=== PATIENT | female | born 1990 | race African-American/Black ===

== ENCOUNTER 2017-11-29 07:50 | Emergency (ER) | payer OTHER | END 2017-11-29 08:25 | disposition home or self-care (01) | LOC: ER 08:25 | DX: O26.891 Other specified pregnancy related conditions, first trimester (principal); H65.191 Other acute nonsuppurative otitis media, right ear; O16.1 Unspecified maternal hypertension, first trimester; Z3A.01 Less than 8 weeks gestation of pregnancy; Z88.0 Allergy status to penicillin; Z88.1 Allergy status to other antibiotic agents; Z88.2 Allergy status to sulfonamides | CPT/HCPCS: 99283 ==

== ENCOUNTER 2019-05-11 13:48 | Emergency (ER) | payer MEDICAID, OTHER ==
[~2019-05-11] VITALS: Ht 170.2 cm; Wt 73.6 kg
[~2019-05-11 13:48] MED LIST: AZIT250T6 PO; CIPR500T94 PO; METR500T PO; PREN1TAB58 PO
--- NOTE | 2019-05-11 14:10 | PHYS DOC ---
Past Medical History Past Medical History: Hypertension Past Surgical History: No Surgical History Alcohol Use: Occasionally Drug Use: None Adult General Chief Complaint Chief Complaint: FLANK PAIN HPI HPI Patient is a 28 year old female that presents with right flank pain that started this morning accompanied by dysuria. The patient states that she's also been having nausea, and dizziness. The patient states her last miscarriage was 2 weeks ago. Rates her pain a 7 out of 10 in severity and sharp and constant. She states she has no history kidney stones. Review of Systems Review of Systems Constitutional: Denies fever or chills. Report dizziness. Eyes: Denies change in visual acuity, redness, or eye pain [] HENT: Denies nasal congestion or sore throat [] Respiratory: Denies cough or shortness of breath [] Cardiovascular: No additional information not addressed in HPI [] GI: Reports abdominal pain, nausea, Denies vomiting, bloody stools or diarrhea [] : Reports dysuria denies hematuria [] Musculoskeletal: Denies back pain or joint pain [] Integument: Denies rash or skin lesions [] Neurologic: Denies headache, focal weakness or sensory changes [] Endocrine: Denies polyuria or polydipsia [] Complete systems were reviewed and found to be within normal limits, except as documented in this note. Current Medications Current Medications Current Medications Medications (Trade) Dose Ordered Sig/Willow Start Time Stop Time Status Last Admin Dose Admin Ceftriaxone Sodium (Rocephin) 1 gm 1X ONCE 05/11/19 15:00 05/11/19 15:01 Morphine Sulfate (Morphine Sulfate) 2 mg 1X ONCE 05/11/19 14:30 05/11/19 14:31 DC 05/11/19 14:25 2 MG Ondansetron HCl (Zofran) 4 mg 1X ONCE 05/11/19 14:30 05/11/19 14:31 DC 05/11/19 14:25 4 MG Sodium Chloride 1,000 ml @ 1,000 mls/hr 1X ONCE 05/11/19 14:30 05/11/19 15:29 05/11/19 14:25 1,000 MLS/HR Allergies Allergies Allergies Coded Allergies Type Severity Reaction Last Updated Verified Penicillins Allergy Intermediate rash, vomiting 02/17/14 Yes clindamycin Allergy Intermediate Rash 12/18/15 Yes sulfamethoxazole Allergy Intermediate Rash 12/18/15 Yes trimethoprim Allergy Intermediate Rash 12/18/15 Yes Physical Exam Physical Exam Constitutional: Well developed, well nourished, no acute distress, non-toxic appearance. [] HENT: Normocephalic, atraumatic, bilateral external ears normal, oropharynx moist, no oral exudates, nose normal. [] Eyes: PERRLA, EOMI, conjunctiva normal, no discharge. [] Neck: Normal range of motion, no tenderness, supple, no stridor. [] Cardiovascular:Heart rate regular rhythm, no murmur [] Lungs & Thorax: Bilateral breath sounds clear to auscultation [] Abdomen: Bowel sounds normal, soft, R flank tenderness, no masses, no pulsatile masses. [] Skin: Warm, dry, no erythema, no rash. [] Back: mild R CVA tenderness. [] Extremities: No tenderness, no cyanosis, no clubbing, ROM intact, no edema. [] Neurologic: Alert and oriented X 3, normal motor function, normal sensory function, no focal deficits noted. [] Psychologic: Affect normal, judgement normal, mood normal. [] Current Patient Data Vital Signs Vital Signs Date Time Temp Pulse Resp B/P (MAP) Pulse Ox O2 Delivery O2 Flow Rate FiO2 05/11/19 14:25 20 95 Room Air 05/11/19 13:50 98.5 103 177/95 (122) 98.5 Lab Values Laboratory Tests Test 05/11/19 14:02 05/11/19 14:05 POC Urine HCG, Qualitative Hcg negative (Negative) White Blood Count 15.1 x10^3/uL (4.0-11.0) H Red Blood Count 3.98 x10^6/uL (3.50-5.40) Hemoglobin 11.7 g/dL (12.0-15.5) L Hematocrit 34.0 % (36.0-47.0) L Mean Corpuscular Volume 86 fL (79-100) Mean Corpuscular Hemoglobin 29 pg (25-35) Mean Corpuscular Hemoglobin Concent 34 g/dL (31-37) Red Cell Distribution Width 14.2 % (11.5-14.5) Platelet Count 210 x10^3/uL (140-400) Neutrophils (%) (Auto) 74 % (31-73) H Lymphocytes (%) (Auto) 12 % (24-48) L Monocytes (%) (Auto) 13 % (0-9) H Eosinophils (%) (Auto) 1 % (0-3) Basophils (%) (Auto) 1 % (0-3) Neutrophils # (Auto) 11.2 x10^3/uL (1.8-7.7) H Lymphocytes # (Auto) 1.8 x10^3/uL (1.0-4.8) Monocytes # (Auto) 1.9 x10^3/uL (0.0-1.1) H Eosinophils # (Auto) 0.1 x10^3/uL (0.0-0.7) Basophils # (Auto) 0.1 x10^3/uL (0.0-0.2) Urine Color Yellow Urine Clarity Cloudy Urine pH 6.0 Urine Specific [place] 1.015 Urine Protein 30 mg/dL (NEG-TRACE) Urine Glucose (UA) Negative mg/dL (NEG) Urine Ketones (Stick) Negative mg/dL (NEG) Urine Blood Large (NEG) Urine Nitrite Negative (NEG) Urine Bilirubin Negative (NEG) Urine Urobilinogen Dipstick 0.2 mg/dL (0.2 mg/dL) Urine Leukocyte Esterase Large (NEG) Urine RBC 11-20 /HPF (0-2) Urine WBC Tntc /HPF (0-4) Urine Squamous Epithelial Cells Occ /LPF Urine Bacteria Moderate /HPF (0-FEW) Sodium Level 136 mmol/L (136-145) Potassium Level 3.6 mmol/L (3.5-5.1) Chloride Level 102 mmol/L (98-107) Carbon Dioxide Level 24 mmol/L (21-32) Anion Gap 10 (6-14) Blood Urea Nitrogen 11 mg/dL (7-20) Creatinine 0.9 mg/dL (0.6-1.0) Estimated GFR (Cockcroft-Gault) 89.0 BUN/Creatinine Ratio 12 (6-20) Glucose Level 92 mg/dL (70-99) Calcium Level 9.2 mg/dL (8.5-10.1) Total Bilirubin 0.5 mg/dL (0.2-1.0) Aspartate Amino Transferase (AST) 12 U/L (15-37) L Alanine Aminotransferase (ALT) 15 U/L (14-59) Alkaline Phosphatase 81 U/L (46-116) Total Protein 8.1 g/dL (6.4-8.2) Albumin 3.3 g/dL (3.4-5.0) L Albumin/Globulin Ratio 0.7 (1.0-1.7) L Laboratory Tests 05/11/19 14:05 Laboratory Tests 05/11/19 14:05 EKG EKG [] Radiology/Procedures Radiology/Procedures [][facility] [address] [place] [address] IMAGING REPORT Signed PATIENT: AVERY TAYLOR ACCOUNT: [id number] : 1990 LOCATION: ER AGE: 28 SEX: F EXAM STATUS: REG ER ORD. PHYSICIAN: SARTHAK JOHNSON APRN REASON: Right flank pain started today. PROCEDURE: CT ABDOMEN PELVIS WO CONTRAST PQRS Compliance statement: One or more of the following individualized dose reduction techniques were utilized for this examination: 1. Automated exposure control. 2. Adjustment of the mA and/or kV according to patient size. 3. Use of iterative reconstruction technique. Indication:Right flank pain. TECHNIQUE: CT abdomen and pelvis without IV contrast with multiplanar reformats. COMPARISON: 01/31/2012. FINDINGS: Limited evaluation of solid abdominal and pelvic organs due to lack of IV contrast. Heart is normal in size. No pericardial or pleural effusion. Clear lung bases. Noncontrast appearance of the liver, spleen, gallbladder, pancreas, adrenals within normal limits. No nephrolithiasis or hydronephrosis. No enlarged retroperitoneal or pelvic adenopathy. No free pelvic fluid or ascites. No bowel obstruction. Normal appendix. Retroverted uterus with IUD. No pneumoperitoneum. Urinary bladder demonstrates circumferential wall thickening without radiopaque stone. No suspicious bony lesion. IMPRESSION: Limited evaluation of solid abdominal and pelvic organs due to lack of IV contrast. 1. No nephrolithiasis or hydronephrosis. 2. Normal appendix. 3. Mild circumferential urinary bladder wall thickening may be secondary to suboptimal distention or cystitis. Clinically correlate with urinalysis. Electronically signed by: Michele Hawkins DO (05/11/2019 2:47 PM) [facility] DICTATED and SIGNED BY: MICHELE HAWKINS DO DATE: 05/11/19 1447 Course & Med Decision Making Course & Med Decision Making Pertinent Labs and Imaging studies reviewed. (See chart for details) Will get CT, labs, Urine, and give supportive care. CT is negative for kidney stones, Urine shows UTI, labs show a mildy elevated WBC. Will give rocephin and then d/c home with Keflex. Dragon Disclaimer Dragon Disclaimer This electronic medical record was generated, in whole or in part, using a voice recognition dictation system. Departure Departure Impression: Primary Impression: Urinary tract infection Disposition: HOME, SELF-CARE Condition: STABLE Referrals: NO PCP (PCP) Patient Instructions: Urinary Tract Infection Additional Instructions: Thank you for visiting [facility] We appreciate you trusting us with your care. If any additional problems come up don't hesitate to return to visit us. Please follow up with your primary care provider so they can plan additional care if needed and know about the problem that you had. If symptoms worsen come back to the Emergency Department. Any concerning symptoms that start such as chest pain, shortness of air, weakness or numbness on one side of the body, running high fevers or any other concerning symptoms return to the ER. Please fill your medications at any pharmacy and follow the prescription instructions. You have been prescribed an antibiotic today to help fight your infection. Please take all of the antibiotic as directed. If after 48 hours the infection is not improving, please return for more care. If the infection worsens, return to ER for additional care. Scripts Cephalexin (KEFLEX) 500 Mg Capsule 1 CAP PO BID for 7 Days, #14 CAP Prov: SARTHAK JOHNSON APRN 05/11/19 Problem Qualifiers Primary Impression: Urinary tract infection Urinary tract infection type: acute cystitis Hematuria presence: with hematuria Qualified Codes: N30.01 - Acute cystitis with hematuria SARTHAK JOHNSON APRN May 11, 2019 14:10
[2019-05-11 14:15] LABS: BASO # 0.1 x10^3/uL (0.0-0.2); BASO % 1 % (0-3); EOS # 0.1 x10^3/uL (0.0-0.7); EOS % 1 % (0-3); HEMOGLOBIN 11.7 g/dL (12.0-15.5); LYMPH # 1.8 x10^3/uL (1.0-4.8); LYMPH % 12 % (24-48); MEAN CORPUSCULAR HEMOGLOBIN 29 pg (25-35); MEAN CORPUSCULAR HGB CONC 34 g/dL (31-37); MEAN CORPUSCULAR VOLUME 86 fL (79-100); MONO # 1.9 x10^3/uL (0.0-1.1); MONO % 13 % (0-9); NEUT # 11.2 x10^3/uL (1.8-7.7); NEUT % 74 % (31-73); PLATELET COUNT 210 x10^3/uL (140-400); RED BLOOD COUNT 3.98 x10^6/uL (3.50-5.40); RED CELL DISTRIBUTION WIDTH 14.2 % (11.5-14.5); WHITE BLOOD COUNT 15.1 x10^3/uL (4.0-11.0)
[2019-05-11 14:18] LABS: BILIRUBIN,URINE NEGATIVE (NEG); CLARITY,URINE CLOUDY; COLOR,URINE YELLOW; NITRITE,URINE NEGATIVE (NEG); PROTEIN,URINE 30 mg/dL (NEG-TRACE); UROBILINOGEN,URINE 0.2 mg/dL (0.2 mg/dL)
[2019-05-11 14:29] LABS: CALCIUM 9.2 mg/dL (8.5-10.1); CREATININE 0.9 mg/dL (0.6-1.0); POTASSIUM 3.6 mmol/L (3.5-5.1)
[2019-05-11] MEDS ORDERED: IV NORMAL SALINE 1000ML BAG 1,000 ML IV ONE (14:30)
[2019-05-11] MEDS ORDERED: MORPHINE SULFATE 2 MG/ML VIAL. IV ONE ×2 (14:30→15:30)
[2019-05-11] MEDS ORDERED: ONDANSETRON PF 4 MG/2 ML VIAL. IV ONE (14:30)
[2019-05-11 14:33] LABS: BACTERIA,URINE MODERATE /HPF (0-FEW); SQUAMOUS EPITHELIAL CELL,UR OCC /LPF; WBC,URINE TNTC /HPF (0-4)
[2019-05-11 14:35] LABS: ALBUMIN 3.3 g/dL (3.4-5.0); ALBUMIN/GLOBULIN RATIO 0.7 (1.0-1.7); TOTAL BILIRUBIN 0.5 mg/dL (0.2-1.0); TOTAL PROTEIN 8.1 g/dL (6.4-8.2)
--- NOTE | 2019-05-11 14:51 | RAD ---
PQRS Compliance statement: One or more of the following individualized dose reduction techniques were utilized for this examination: 1. Automated exposure control. 2. Adjustment of the mA and/or kV according to patient size. 3. Use of iterative reconstruction technique. Indication:Right flank pain. TECHNIQUE: CT abdomen and pelvis without IV contrast with multiplanar reformats. COMPARISON: 01/31/2012. FINDINGS: Limited evaluation of solid abdominal and pelvic organs due to lack of IV contrast. Heart is normal in size. No pericardial or pleural effusion. Clear lung bases. Noncontrast appearance of the liver, spleen, gallbladder, pancreas, adrenals within normal limits. No nephrolithiasis or hydronephrosis. No enlarged retroperitoneal or pelvic adenopathy. No free pelvic fluid or ascites. No bowel obstruction. Normal appendix. Retroverted uterus with IUD. No pneumoperitoneum. Urinary bladder demonstrates circumferential wall thickening without radiopaque stone. No suspicious bony lesion. IMPRESSION: Limited evaluation of solid abdominal and pelvic organs due to lack of IV contrast. 1. No nephrolithiasis or hydronephrosis. 2. Normal appendix. 3. Mild circumferential urinary bladder wall thickening may be secondary to suboptimal distention or cystitis. Clinically correlate with urinalysis. Electronically signed by: Michele Howard DO (05/11/2019 2:47 PM) [facility]
[2019-05-11] MEDS ORDERED: CEPH-264 PO (14:59)
[2019-05-11] MEDS ORDERED: cefTRIAXone IV Push 1 GM VIAL. IVP ONE (15:00)
[2019-05-11] MEDS ORDERED: KETOROLAC 15 MG/ML VIAL. IV ONE (15:30)
[2019-05-11 15:31] VITALS: BP 157/81
== END 2019-05-11 15:32 | disposition home or self-care (01) ==
LOC: ER 13:48
DX: N30.01 Acute cystitis with hematuria (principal); I10 Essential (primary) hypertension; R42 Dizziness and giddiness; Z88.0 Allergy status to penicillin; Z88.1 Allergy status to other antibiotic agents; Z88.2 Allergy status to sulfonamides
CPT/HCPCS: 36415; 74176; 80053; 81001; 81025; 85025; 87086; 87186; 96361; 96374; 96375; 99285; J2270; J2405; J7030

== ENCOUNTER 2019-12-24 12:45 | Emergency (ER) | payer MEDICAID ==
[~2019-12-24] VITALS: Ht 162.6 cm; Wt 70.9 kg
[~2019-12-24 12:45] MED LIST changes: +CEPH-264 PO
[2019-12-24 13:20] VITALS: BP 182/101
[2019-12-24 13:46] LABS: BILIRUBIN,URINE NEGATIVE (NEG); CLARITY,URINE CLEAR; COLOR,URINE YELLOW; NITRITE,URINE NEGATIVE (NEG); PROTEIN,URINE 30 mg/dL (NEG-TRACE); UROBILINOGEN,URINE 0.2 mg/dL (0.2 mg/dL)
[2019-12-24 13:50] LABS: BARBITURATES NEG (NEG); BENZODIAZEPINES NEG (NEG); CANNABINOIDS POS (NEG); COCAINE POS (NEG); METHADONE NEG (NEG); OPIATES NEG (NEG); PHENCYCLIDINE NEG (NEG)
[2019-12-24 13:51] LABS: AMPHETAMINE/METHAMPHETAMINE NEG (NEG)
[2019-12-24 13:54] LABS: BACTERIA,URINE FEW /HPF (0-FEW); RBC,URINE TNTC /HPF (0-2); SQUAMOUS EPITHELIAL CELL,UR FEW /LPF; TRICHOMONAS,URINE PRESENT; WBC,URINE 20-40 /HPF (0-4)
[2019-12-24 14:08] LABS: BASO # 0.1 x10^3/uL (0.0-0.2); BASO % 1 % (0-3); EOS # 0.5 x10^3/uL (0.0-0.7); EOS % 4 % (0-3); HEMATOCRIT 34.2 % (36.0-47.0); HEMOGLOBIN 11.5 g/dL (12.0-15.5); LYMPH % 17 % (24-48); MEAN CORPUSCULAR HEMOGLOBIN 29 pg (25-35); MEAN CORPUSCULAR HGB CONC 34 g/dL (31-37); MEAN CORPUSCULAR VOLUME 86 fL (79-100); MONO # 0.9 x10^3/uL (0.0-1.1); MONO % 7 % (0-9); NEUT # 8.3 x10^3/uL (1.8-7.7); NEUT % 71 % (31-73); PLATELET COUNT 209 x10^3/uL (140-400); RED BLOOD COUNT 3.98 x10^6/uL (3.50-5.40); RED CELL DISTRIBUTION WIDTH 14.7 % (11.5-14.5); WHITE BLOOD COUNT 11.8 x10^3/uL (4.0-11.0)
--- NOTE | 2019-12-24 14:10 | RAD ---
PELVIS W/TV History: Vaginal bleeding. Comparison: CT May 11, 2019. Technique: Grayscale and color Doppler imaging of the pelvis was performed using transabdominal and transvaginal technique. Findings: The uterus measures 7.1 x 5.4 x 4.4 cm in length. IUD noted within the upper endometrial canal. Right ovary measures 1.7 x 2.1 x 1.0 cm. Left ovary measures 3.2 x 2.7 x 2.3 cm. Involuting hemorrhagic follicle measures 2.0 cm. Small pelvic free fluid, likely physiologic. No adnexal masses are seen. IMPRESSION: 1. IUD noted within the upper endometrial canal. 2. Involuting left ovarian hemorrhagic follicle. Electronically signed by: Rhys Cotton DO (12/24/2019 2:07 PM) [id number]
[2019-12-24 14:29] LABS: CALCIUM 9.1 mg/dL (8.5-10.1); CREATININE 0.8 mg/dL (0.6-1.0); GFR 101.2; POTASSIUM 3.2 mmol/L (3.5-5.1)
[2019-12-24 14:32] LABS: ALBUMIN 3.3 g/dL (3.4-5.0); ALBUMIN/GLOBULIN RATIO 0.7 (1.0-1.7); TOTAL BILIRUBIN 0.6 mg/dL (0.2-1.0); TOTAL PROTEIN 7.8 g/dL (6.4-8.2)
[2019-12-24] MEDS ORDERED: NITR100C62 PO (14:44)
--- NOTE | 2019-12-24 14:44 | PHYS DOC ---
Past Medical History Past Medical History: Hypertension Past Surgical History: No Surgical History Smoking Status: Current Every Day Smoker Alcohol Use: Occasionally Drug Use: None Adult General Chief Complaint Chief Complaint: VAGINAL BLEEDING HPI HPI Patient is a 29 year old female with history of hypertension who presents to the ED today complaining of vaginal bleeding that began 3 weeks ago but got worse when she woke up this morning. Patient states she woke up and thought she had a low blood on her bed. Denies any abdominal pain or cramping. She states she has had ParaGard IUD since 2018. Review of Systems Review of Systems Constitutional: Denies fever or chills [] Eyes: Denies change in visual acuity, redness, or eye pain [] HENT: Denies nasal congestion or sore throat [] Respiratory: Denies cough or shortness of breath [] Cardiovascular: No additional information not addressed in HPI [] GI: Reports vaginal bleeding. Denies abdominal pain, nausea, vomiting, bloody stools or diarrhea [] : Denies dysuria or hematuria [] Musculoskeletal: Denies back pain or joint pain [] Integument: Denies rash or skin lesions [] Neurologic: Denies headache, focal weakness or sensory changes [] All other systems were reviewed and found to be within normal limits, except as documented in this note. Current Medications Current Medications Current Medications Medications (Trade) Dose Ordered Sig/Willow Start Time Stop Time Status Last Admin Dose Admin Azithromycin (Zithromax) 1,000 mg 1X ONCE 12/24/19 14:30 12/24/19 14:31 UNV Ceftriaxone Sodium (Rocephin Im) 250 mg 1X ONCE 12/24/19 14:30 12/24/19 14:31 UNV Diphenhydramine HCl (Benadryl) 25 mg 1X ONCE 12/24/19 14:30 12/24/19 14:31 UNV Metronidazole (Flagyl) 2,000 mg 1X ONCE 12/24/19 14:30 12/24/19 14:31 UNV Ondansetron HCl (Zofran Odt) 4 mg 1X ONCE 12/24/19 14:30 12/24/19 14:31 UNV Prednisone (Prednisone) 50 mg 1X ONCE 12/24/19 14:30 12/24/19 14:31 UNV Allergies Allergies Allergies Coded Allergies Type Severity Reaction Last Updated Verified Penicillins Allergy Intermediate rash, vomiting 02/17/14 Yes clindamycin Allergy Intermediate Rash 12/18/15 Yes sulfamethoxazole Allergy Intermediate Rash 12/18/15 Yes trimethoprim Allergy Intermediate Rash 12/18/15 Yes Physical Exam Physical Exam Constitutional: Well developed, well nourished, no acute distress, non-toxic appearance. [] HENT: Normocephalic, atraumatic, bilateral external ears normal, oropharynx moist, no oral exudates, nose normal. [] Eyes: PERRLA, EOMI, conjunctiva normal, no discharge. [] Neck: Normal range of motion, no tenderness, supple, no stridor. [] Cardiovascular:Heart rate regular rhythm, no murmur [] Lungs & Thorax: Bilateral breath sounds clear to auscultation [] Abdomen: Bowel sounds normal, soft, no tenderness, no masses, no pulsatile masses. [] Pelvic exam External pelvic appears normal, cervix is visualized with IUD strings in the cervical OS,, no CMT, no adnexal tenderness, trace amount of bright red blood in the vaginal vault. Skin: Warm, dry, no erythema, no rash. [] Back: No tenderness, no CVA tenderness. [] Extremities: No tenderness, no cyanosis, no clubbing, ROM intact, no edema. [] Neurologic: Alert and oriented X 3, normal motor function, normal sensory function, no focal deficits noted. [] Psychologic: Affect normal, judgement normal, mood normal. [] Current Patient Data Vital Signs Vital Signs Date Time Temp Pulse Resp B/P (MAP) Pulse Ox O2 Delivery O2 Flow Rate FiO2 12/24/19 13:20 98.2 77 18 182/101 (128) 97 Room Air 98.2 Lab Values Laboratory Tests Test 12/24/19 12:58 12/24/19 13:05 12/24/19 14:00 Urine Collection Type Unknown Urine Color Yellow Urine Clarity Clear Urine pH 6.0 (<5.0-8.0) Urine Specific [place] 1.015 (1.000-1.030) Urine Protein 30 mg/dL (NEG-TRACE) Urine Glucose (UA) Negative mg/dL (NEG) Urine Ketones (Stick) Negative mg/dL (NEG) Urine Blood Large (NEG) Urine Nitrite Negative (NEG) Urine Bilirubin Negative (NEG) Urine Urobilinogen Dipstick 0.2 mg/dL (0.2 mg/dL) Urine Leukocyte Esterase Moderate (NEG) Urine RBC Tntc /HPF (0-2) Urine WBC 20-40 /HPF (0-4) Urine Squamous Epithelial Cells Few /LPF Urine Bacteria Few /HPF (0-FEW) Urine Mucus Mod /LPF Urine Trichomonas Present Urine Opiates Screen Neg (NEG) Urine Methadone Screen Neg (NEG) Urine Barbiturates Neg (NEG) Urine Phencyclidine Screen Neg (NEG) Urine Amphetamine/Methamphetamine Neg (NEG) Urine Benzodiazepines Screen Neg (NEG) Urine Cocaine Screen Pos (NEG) Urine Cannabinoids Screen Pos (NEG) Urine Ethyl Alcohol Neg (NEG) POC Urine HCG, Qualitative Hcg negative (Negative) White Blood Count 11.8 x10^3/uL (4.0-11.0) H Red Blood Count 3.98 x10^6/uL (3.50-5.40) Hemoglobin 11.5 g/dL (12.0-15.5) L Hematocrit 34.2 % (36.0-47.0) L Mean Corpuscular Volume 86 fL (79-100) Mean Corpuscular Hemoglobin 29 pg (25-35) Mean Corpuscular Hemoglobin Concent 34 g/dL (31-37) Red Cell Distribution Width 14.7 % (11.5-14.5) H Platelet Count 209 x10^3/uL (140-400) Neutrophils (%) (Auto) 71 % (31-73) Lymphocytes (%) (Auto) 17 % (24-48) L Monocytes (%) (Auto) 7 % (0-9) Eosinophils (%) (Auto) 4 % (0-3) H Basophils (%) (Auto) 1 % (0-3) Neutrophils # (Auto) 8.3 x10^3/uL (1.8-7.7) H Lymphocytes # (Auto) 2.0 x10^3/uL (1.0-4.8) Monocytes # (Auto) 0.9 x10^3/uL (0.0-1.1) Eosinophils # (Auto) 0.5 x10^3/uL (0.0-0.7) Basophils # (Auto) 0.1 x10^3/uL (0.0-0.2) Sodium Level 139 mmol/L (136-145) Potassium Level 3.2 mmol/L (3.5-5.1) L Chloride Level 104 mmol/L (98-107) Carbon Dioxide Level 28 mmol/L (21-32) Anion Gap 7 (6-14) Blood Urea Nitrogen 10 mg/dL (7-20) Creatinine 0.8 mg/dL (0.6-1.0) Estimated GFR (Cockcroft-Gault) 101.2 BUN/Creatinine Ratio 13 (6-20) Glucose Level 92 mg/dL (70-99) Calcium Level 9.1 mg/dL (8.5-10.1) Total Bilirubin Pending Aspartate Amino Transferase (AST) Pending Alanine Aminotransferase (ALT) Pending Alkaline Phosphatase Pending Total Protein Pending Albumin Pending Albumin/Globulin Ratio Pending Ethyl Alcohol Level < 10 mg/dL (0-10) Laboratory Tests 12/24/19 14:00 Laboratory Tests 12/24/19 14:00 Microbiology 12/24/19 Wet Prep - Final, Complete EKG EKG [] Radiology/Procedures Radiology/Procedures []PROCEDURE: PELVIS W/TV PELVIS W/TV History: Vaginal bleeding. Comparison: CT May 11, 2019. Technique: Grayscale and color Doppler imaging of the pelvis was performed using transabdominal and transvaginal technique. Findings: The uterus measures 7.1 x 5.4 x 4.4 cm in length. IUD noted within the upper endometrial canal. Right ovary measures 1.7 x 2.1 x 1.0 cm. Left ovary measures 3.2 x 2.7 x 2.3 cm. Involuting hemorrhagic follicle measures 2.0 cm. Small pelvic free fluid, likely physiologic. No adnexal masses are seen. IMPRESSION: 1. IUD noted within the upper endometrial canal. 2. Involuting left ovarian hemorrhagic follicle. Electronically signed by: Rhys Dominguez DO (12/24/2019 2:07 PM) [id number] DICTATED and SIGNED BY: RHYS DOMINGUEZ DO DATE: 12/24/19 1407 Course & Med Decision Making Course & Med Decision Making Pertinent Labs and Imaging studies reviewed. (See chart for details) This is a 29-year-old female patient presenting to the ED today complaining of vaginal bleeding that began 3 weeks ago. On physical exam patient had trace amount of bleeding. Negative urine hcg, UA positive for UTI and Trichomonas. Wet prep noted for Trichomonas. WBC 11.8 . Hgb 11.5 HCT 34.2, pelvic ultrasound noted for left hemorrhagic cyst. Patient was treated for STDs in the ED, indication was provided. Discharged with instructions to follow-up with her [employer] in the course of this week or next week Elfego Disclaimer Elfego Disclaimer This electronic medical record was generated, in whole or in part, using a voice recognition dictation system. Departure Departure Impression: Primary Impression: Urinary tract infection Additional Impressions: Trichomonas vaginitis Dysfunctional uterine bleeding Disposition: HOME, SELF-CARE Condition: STABLE Referrals: NO PCP (PCP) EDNA CROWELL Jr, MD follow up in 1-2 weeks Patient Instructions: Trichomoniasis, Urinary Tract Infection, Uterine Bleeding, Dysfunctional, [id number] Additional Instructions: You have urinary tract infection, and Trichomonas. Trichomonas is a sexually transmitted diseas, use protection at all times. Ask your sexual partners to seek treatment too. 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 Scripts Nitrofurantoin Monohyd/M-Cryst (MACROBID 100 MG CAPSULE) 100 Mg Capsule 1 CAP PO BID for 7 Days, #14 CAP 0 Refills Prov: ESTEFANI SUTTON APRN 12/24/19 Problem Qualifiers Primary Impression: Urinary tract infection Urinary tract infection type: site unspecified Hematuria presence: without hematuria Qualified Codes: N39.0 - Urinary tract infection, site not specified ESTEFANI SUTTON APRN Dec 24, 2019 14:44
[2019-12-24] MEDS: cefTRIAXone IM 250 MG VIAL IM ONE (15:06)
[2019-12-24] MEDS: diphenhydrAMINE HCL 25 MG CAPSULE PO ONE (15:07)
[2019-12-24] MEDS: metroNIDAZOLE 500 MG TABLET PO ONE (15:07)
[2019-12-24] MEDS: predniSONE 10 MG TABLET PO ONE (15:07)
[2019-12-24] MEDS: AZITHROMYCIN 250 MG TABLET. PO ONE (15:07)
[2019-12-24] MEDS: ONDANSETRON ODT 4 MG TAB.RAPDIS. PO ONE (15:08)
== END 2019-12-24 15:11 | disposition home or self-care (01) ==
LOC: ER 12:45
DX: N39.0 Urinary tract infection, site not specified (principal); N93.8 Other specified abnormal uterine and vaginal bleeding; N76.0 Acute vaginitis; B96.89 Other specified bacterial agents as the cause of diseases classified elsewhere; I10 Essential (primary) hypertension; F17.200 Nicotine dependence, unspecified, uncomplicated; Z88.0 Allergy status to penicillin; Z88.1 Allergy status to other antibiotic agents; Z88.2 Allergy status to sulfonamides; Z88.8 Allergy status to other drugs, medicaments and biological substances
CPT/HCPCS: 76830; 76856; 80053; 80307; 81001; 81025; 85025; 87491; 87591; 96372; 99285; G0480; J0696; J7512; Q0111; Q0162; Q0163

== ENCOUNTER 2021-05-06 11:25 | Emergency (ER) | payer MEDICAID ==
[~2021-05-06] VITALS: Ht 167.6 cm; Wt 68.2 kg
[~2021-05-06 11:25] MED LIST changes: +NITR100C62 PO
--- NOTE | 2021-05-06 11:40 | PHYS DOC ---
Past Medical History Past Medical History: Hypertension Past Surgical History: No Surgical History Smoking Status: Current Every Day Smoker Alcohol Use: Occasionally Drug Use: None General Adult HPI: HPI: Patient is a 30 year old female with history of HTN not currently on treatment who presents with chest pain starting last night at 12:30 AM. Awoke her from sleep. Described as tightness and sharp. It is precordial. Worse with deep inspiration and with exertion. Does complain of some shortness of breath. States that she has had some bruising on her left lower extremity without trauma, but no swelling or pain. No history of VTE. Not on any blood thinning medications. Not on OCPs or estrogen containing meds. No recent surgeries or immobilizations. She has never had similar pain in the past. Her only medical history is hypertension. She does not currently have a PCP. On review of systems she does complain of nasal congestion and sore throat that have been going on for the past several days to a week. Denies cough. Not vaccinated for Covid. 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 Denies any known Covid contacts. Review of Systems: Review of Systems: Constitutional: Denies fever or chills. [] Eyes: Denies change in visual acuity. [] HENT: Reports congestion and sore throat.. [] Respiratory: Reports shortness of breath. Denies cough.. [] Cardiovascular: reports chest pain. [] GI: Denies abdominal pain, nausea, vomiting, bloody stools or diarrhea. [] : Denies dysuria. [] Musculoskeletal: Denies back pain or joint pain. [] Integument: Denies rash. [] Neurologic: Denies headache, focal weakness or sensory changes. [] Endocrine: Denies polyuria or polydipsia. [] Lymphatic: Denies swollen glands. [] Psychiatric: Denies depression or anxiety. [] Heart Score: C/O Chest Pain: Yes HEART Score for Chest Pain: HEART Score for Chest Pain Response (Comments) Value History Slighlty/Non-Suspicious 0 ECG Normal 0 Age < 45 0 Risk Factors 1 or 2 Risk Factors 1 Total 1 Risk Factors: Risk Factors: DM, Current or recent (<one month) smoker, HTN, HLP, family history of CAD, obesity. Risk Scores: Score 0 - 3: 2.5% MACE over next 6 weeks - Discharge Home Score 4 - 6: 20.3% MACE over next 6 weeks - Admit for Clinical Observation Score 7 - 10: 72.7% MACE over next 6 weeks - Early Invasive Strategies Allergies: Allergies: Allergies Coded Allergies Type Severity Reaction Last Updated Verified Penicillins Allergy Intermediate rash, vomiting 02/17/14 Yes clindamycin Allergy Intermediate Rash 12/18/15 Yes sulfamethoxazole Allergy Intermediate Rash 12/18/15 Yes trimethoprim Allergy Intermediate Rash 12/18/15 Yes Physical Exam: PE: Constitutional: Well developed, well nourished, no acute distress, non-toxic appearance. [] HENT: Normocephalic, atraumatic, bilateral external ears normal, oropharynx moist, no oral exudates, nose normal. [] Eyes: PERRLA, EOMI, conjunctiva normal, no discharge. [] Neck: Normal range of motion, no tenderness, supple, no stridor. [] Cardiovascular:Heart rate regular rhythm, no murmur [] Lungs & Thorax: Bilateral breath sounds clear to auscultation [] Abdomen: Bowel sounds normal, soft, no tenderness, no masses, no pulsatile masses. [] Skin: Warm, dry, no erythema, no rash. [] Back: No tenderness, no CVA tenderness. [] Extremities: No tenderness, no cyanosis, no clubbing, ROM intact, no edema. [] Neurologic: Alert and oriented X 3, normal motor function, normal sensory function, no focal deficits noted. [] Psychologic: Affect normal, judgement normal, mood normal. [] EKG: EKG: Sinus rhythm. Rate 92. Normal axis. No Q waves. No T wave inversion. No ST elevation or depression. [] Radiology/Procedures: Radiology/Procedures: [] Impression: [facility] [address] [place] [address] IMAGING REPORT Signed PATIENT: AVERY TAYLOR ACCOUNT: [id number] : 1990 LOCATION: ER AGE: 30 SEX: F EXAM STATUS: PRE ER ORD. PHYSICIAN: RASHEED QUIJANO MD REASON: CHEST PAIN PROCEDURE: CHEST AP ONLY Chest AP portable at 12:05 PM: Reason for examination: Chest pain. The heart size is normal. Mediastinum is unremarkable. Lung marcus appear to show mild diffuse pulmonary opacities bilaterally. No pleural effusions or pneumothorax are seen.No acute bony abnormalities are seen. IMPRESSION: Mild diffuse pulmonary opacities bilaterally. Recommend clinical correlation. Electronically signed by: Selena Braxton MD (05/06/2021 1:07 PM) [id number] DICTATED and SIGNED BY: SELENA BRAXTON MD DATE: 05/06/21 [id number] [facility] [address] [place] [address] IMAGING REPORT Signed PATIENT: AVERY TAYLOR ACCOUNT: [id number] : 1990 LOCATION: ER AGE: 30 SEX: F EXAM STATUS: REG ER ORD. PHYSICIAN: RASHEED QUIJANO MD REASON: PE, intermediat prob, dimer +, eval for pneumonia PROCEDURE: CT ANGIOGRAPHY CHEST CTA OF THE CHEST WITH AND WITHOUT CONTRAST Clinical indications: Positive d-dimer. Chest pain. Technique: Noncontrast axial localizer was performed. After IV infusion of 90 cc of Omnipaque 350, helical CT scanning of the chest was performed using the CTA pulmonary embolism protocol. Coronal and sagittal MIP reconstructions were generated. PQRS compliance Statement One or more of the following individualized dose reduction techniques were utilized for this study: 1. Automated exposure control 2. Adjustment of the mA and/or kV according to patient size 3. Use of iterative reconstruction technique Comparison: No previous chest CT available. Findings: No pulmonary embolism is evident. No focal aneurysmal dilatation or dissection of the thoracic aorta is seen. Heart size is normal and no pericardial effusion is seen. No enlarged thoracic lymphadenopathy is seen. Enlargement of the left lobe of the thyroid gland is seen. No adrenal mass is apparent. No pleural effusion or pneumothorax is seen. Mild atelectasis of the posterior right lower lobe is seen. There is a small groundglass lung infiltrate within the anterior medial aspect of the left upper lobe. No lung mass or lung consolidation is seen otherwise. The proximal bronchial tree is patent. No lytic process is seen. IMPRESSION: No pulmonary embolism. Small ground glass lung infiltrate within the anterior medial aspect of the left upper lobe. Enlarged left lobe of the thyroid gland. Recommend outpatient thyroid sonography for further evaluation. Electronically signed by: Ion Foster MD (05/06/2021 3:47 PM) [id number] DICTATED and SIGNED BY: ION FOSTER MD DATE: 05/06/21 [id number] 0 Course & Med Decision Making: Course & Med Decision Making Pertinent Labs and Imaging studies reviewed. (See chart for details) Patient is 30-year-old female with history of untreated hypertension who presents with chest tightness that is pleuritic, exertional, and associated with shortness of breath. Has been present since 12:30 AM. On arrival is afebrile and hemodynamically stable. Consider PE. Dimer ordered. Given age ACS is far less likely. Nonischemic EKG. Single troponin should be sufficient to risk stratify for ACS/NSTEMI. She does have nasal congestion and sore throat, Covid is certainly a possibility. Will be swabbed. Chest x-ray to evaluate for pneumonia or other acute pulmonary process such as pneumothorax. No evidence of aortic dissection or esophageal injury. 1140 Leukocytosis and multifocal pna seen on initial labwork and imaging. Dimer +, will obtain CTA to exclude PE and further evaluated multifocal pneumonia. 1532 CTA with no PE. Does show groundglass pneumonia. Given negative rapid Covid and leukocytosis will treat with antibiotics. With allergies will elect for cefdinir and doxycycline. Vital signs remained stable. Feel she is safe for discharge for outpatient management. 1629 Elfego Disclaimer: Elfego Disclaimer: This electronic medical record was generated, in whole or in part, using a voice recognition dictation system. Departure Departure Impression: Primary Impression: Pneumonia Disposition: 01 HOME / SELF CARE / HOMELESS Condition: STABLE Referrals: NO PCP (PCP) Additional Instructions: Your work-up showed that you have evidence of pneumonia. This is likely the cause of your symptoms. I prescribed 2 separate antibiotics for you to take treat this. Please take cefdinir and doxycycline. Please take the entire course. If you have worsening shortness of breath, or other new/concerning symptoms you can return to the emergency department for reevaluation. Since you do not have a PCP, please call the number for the [facility] at [phone]. Scripts Doxycycline Hyclate (DOXYCYCLINE HYCLATE) 100 Mg Capsule 1 CAP PO BID for 7 Days, #14 CAP Prov: RASHEED QUIJANO MD 05/06/21 Cefdinir (CEFDINIR) 300 Mg Capsule 1 CAP PO BID for 7 Days, #14 CAP Prov: RASHEED QUIJANO MD 05/06/21 RASHEED QUIJANO MD May 06, 2021 11:40
[2021-05-06] MEDS ORDERED: LABETALOL 20 MG/4 ML DISP.SYRIN. IVP ONE (11:45)
--- NOTE | 2021-05-06 13:10 | RAD ---
Chest AP portable at 12:05 PM: Reason for examination: Chest pain. The heart size is normal. Mediastinum is unremarkable. Lung marcus appear to show mild diffuse pulmon abner opacities bilaterally. No pleural effusions or pneumothorax are seen.No acute bony abnormalities are seen. IMPRESSION: Mild diffuse pulmonary opacities bilaterally. Recommend clinical correlation. Electronically signed by: Selena Prather MD (05/06/2021 1:07 PM) [id number]
[2021-05-06 13:24] LABS: BASO # 0.1 x10^3/uL (0.0-0.2); BASO % 0 % (0-3); EOS # 0.3 x10^3/uL (0.0-0.7); EOS % 1 % (0-3); HEMATOCRIT 36.6 % (36.0-47.0); HEMOGLOBIN 12.5 g/dL (12.0-15.5); LYMPH # 1.5 x10^3/uL (1.0-4.8); LYMPH % 8 % (24-48); MEAN CORPUSCULAR HEMOGLOBIN 29 pg (25-35); MEAN CORPUSCULAR HGB CONC 34 g/dL (31-37); MEAN CORPUSCULAR VOLUME 86 fL (79-100); MONO # 1.6 x10^3/uL (0.0-1.1); MONO % 9 % (0-9); NEUT # 15.1 x10^3/uL (1.8-7.7); NEUT % 81 % (31-73); PLATELET COUNT 195 x10^3/uL (140-400); RED BLOOD COUNT 4.23 x10^6/uL (3.50-5.40); RED CELL DISTRIBUTION WIDTH 14.6 % (11.5-14.5); WHITE BLOOD COUNT 18.6 x10^3/uL (4.0-11.0)
[2021-05-06 13:40] LABS: CALCIUM 9.1 mg/dL (8.5-10.1); CREATININE 0.8 mg/dL (0.6-1.0); GFR 100.6; POTASSIUM 3.7 mmol/L (3.5-5.1)
[2021-05-06 13:51] LABS: ALBUMIN 3.5 g/dL (3.4-5.0); ALBUMIN/GLOBULIN RATIO 0.7 (1.0-1.7); TOTAL BILIRUBIN 0.4 mg/dL (0.2-1.0); TOTAL PROTEIN 8.2 g/dL (6.4-8.2)
[2021-05-06] MEDS ORDERED: IOHEXOL 350 MG/ML 100 ML VIAL. IV ONE (15:00)
[2021-05-06] MEDS ORDERED: CONTRAST GIVEN. MC PRN (15:15)
[2021-05-06 15:49] LABS: % BANDS 9 % (0-9); % BASOS 2 % (0-3); % EOS 2 % (0-5); % LYMPHS 9 % (24-48); % MONOS 7 % (0-10); % SEGS 71 % (35-66)
[2021-05-06 15:50] LABS: PLT ESTIMATE ADEQUATE (ADEQUATE)
--- NOTE | 2021-05-06 15:50 | RAD ---
CTA OF THE CHEST WITH AND WITHOUT CONTRAST Clinical indications: Positive d-dimer. Chest pain. Technique: Noncontrast axial localizer was performed. After IV infusion of 90 cc of Omnipaque 350, he lical CT scanning of the chest was performed using the CTA pulmonary embolism protocol. Coronal and s agittal MIP reconstructions were generated. PQRS compliance Statement One or more of the following individualized dose reduction techniques were utilized for this study: 1. Automated exposure control 2. Adjustment of the mA and/or kV according to patient size 3. Use of iterative reconstruction technique Comparison: No previous chest CT available. Findings: No pulmonary embolism is evident. No focal aneurysmal dilatation or dissection of the thora cic aorta is seen. Heart size is normal and no pericardial effusion is seen. No enlarged thoracic lym phadenopathy is seen. Enlargement of the left lobe of the thyroid gland is seen. No adrenal mass is a pparent. No pleural effusion or pneumothorax is seen. Mild atelectasis of the posterior right lower l obe is seen. There is a small groundglass lung infiltrate within the anterior medial aspect of the le ft upper lobe. No lung mass or lung consolidation is seen otherwise. The proximal bronchial tree is p atent. No lytic process is seen. IMPRESSION: No pulmonary embolism. Small ground glass lung infiltrate within the anterior medial aspect of the left upper lobe. Enlarged left lobe of the thyroid gland. Recommend outpatient thyroid sonography for further evaluati on. Electronically signed by: Ubaldo Foster MD (05/06/2021 3:47 PM) [id number]
[2021-05-06] MEDS ORDERED: DOXY100C3 PO (16:38)
[2021-05-06] MEDS ORDERED: CEFD300C PO (16:38)
[2021-05-06 16:40] VITALS: BP 173/96
--- NOTE | 2021-05-06 16:57 | EKG ---
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
--- NOTE | 2021-05-07 11:20 | NUR ---
IP: Informed pt of negative covid test. Pt verbalized understanding.
== END 2021-05-06 17:10 | disposition home or self-care (01) ==
LOC: ER 11:25
DX: J18.9 Pneumonia, unspecified organism (principal); Z20.822 Contact with and (suspected) exposure to COVID-19; R07.89 Other chest pain; I10 Essential (primary) hypertension; F17.200 Nicotine dependence, unspecified, uncomplicated; Z88.0 Allergy status to penicillin; Z88.1 Allergy status to other antibiotic agents; Z88.2 Allergy status to sulfonamides
CPT/HCPCS: 36415; 71045; 71275; 80053; 81025; 83880; 84484; 85007; 85025; 85379; 87426; 93005; 96374; 99285; J3490; Q9967; U0003; U0005